=== PATIENT | male | born 1980 | race African-American/Black ===

== ENCOUNTER 2024-03-30 08:19 | Day surgery (SDC) | payer BC ==
[2024-03-25 15:28] VITALS: BMI 31.2
[2024-03-30 09:45] VITALS: RESP 18; TEMP 97.5
[2024-03-30 10:12] VITALS: BP 128/85; PULSE 80
== END 2024-03-30 10:05 | disposition home or self-care (01) ==
LOC: FASU-ENDO 08:19
PROVIDERS: ATTEND Internal Medicine Gastroenterology
PROC: 0DJD8ZZ Inspection of Lower Intestinal Tract, Via Natural or Artificial Opening Endoscopic (ICD-10-PCS; principal; 2024-03-30 09:13)
DX: Z12.11 Encounter for screening for malignant neoplasm of colon (principal)